=== PATIENT | male | born 1985 | race Caucasian/White ===

== ENCOUNTER 2016-10-13 14:01 | Emergency (ER) | payer SELFPAY ==
--- NOTE | ~2016-10-13 | ER ---
PATIENT'S NAME: CLAIRE PATRICIA [facility] AGE: 31 Y [address] ROOM: [place] [address] LOCATION: ED ADMIT DATE: 10/13/2016 ER/Outpatient Report DISCHARGE DATE: 10/13/2016 FAMILY PHYSICIAN: PHYSICIAN, NO ATTENDING PHYSICIAN: Yusuf Sheehan Time of Arrival: 1411 hours. Time of Evaluation: 1415 hours. CHIEF COMPLAINT: Back pain. HISTORY OF PRESENT ILLNESS: The patient woke up with right mid back pain approximately 5 days ago. It has stayed the same over the past 5 days. He has used ice, heat, Tylenol and ibuprofen without any relief. He denies any trauma to the area. Has not had pain in that area before. Has had pain lower, but not as high up as it is at this time. ALLERGIES: ON HIS CHART AND REVIEWED BY ME. MEDICATIONS: On his chart and reviewed by me. PAST MEDICAL HISTORY: Back problems and acid reflux. PAST SURGERIES: Left ankle pin. SOCIAL HISTORY: He does smoke at least half a pack per day; drinks alcohol on a regular basis and smokes marijuana. REVIEW OF SYSTEMS: All negative other than those mentioned in the HPI. PHYSICAL EXAMINATION: VITAL SIGNS: Weighed 101 kg. Blood pressure was 105/77, pulse of 111, respirations 20, temperature of 97.9, and O2 saturation was 97% on room air. GENERAL: He is awake and alert and oriented x4. SKIN: [place], warm, and dry. RESPIRATIONS: Even and nonlabored. Lung sounds are clear throughout. HEART: Regular rate and rhythm. PATIENT'S NAME: CLAIRE PATRICIA [facility] AGE: 31 Y [address] ROOM: [place] [address] LOCATION: ED ADMIT DATE: 10/13/2016 ER/Outpatient Report DISCHARGE DATE: 10/13/2016 FAMILY PHYSICIAN: PHYSICIAN, NO ATTENDING PHYSICIAN: Yusuf Sheehan EXTREMITIES: The patient was able to ambulate in with a steady, even walk. SKIN: No rash or abnormality of his back is noted. EMERGENCY DEPARTMENT COURSE: Thoracic x-ray was completed, no acute bony abnormalities noted. The patient was given [place] 5/325 x2 tabs p.o. He did get some relief with that. IMPRESSION: Back pain. PLAN: Home, rest, ice or heat. Prescription was written for Flexeril and [place]. Numbers were given for clinics here in [facility]. Did discuss with the patient that if pain continues, he may need to consider physical therapy and would have to get that lined up through primary provider. He is to see somebody in 2 to 3 days if symptoms persist. He verbalized understanding. SOUMYA MORROW APRN FOR MD ELIAN NUNN/erma /[id number] d: 10/13/167 t: 10/17/16 174, OUTPATIENT REPORT
== END 2016-10-13 15:05 | disposition disaster alternative care site (69) ==
LOC: GMED 14:01
DX: M54.9 Dorsalgia, unspecified (principal); F17.210 Nicotine dependence, cigarettes, uncomplicated

== ENCOUNTER 2016-12-10 18:25 | Emergency (ER) | payer SELFPAY ==
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
== END 2016-12-10 19:11 | disposition disaster alternative care site (69) ==
LOC: GACC 18:25
DX: S01.511A Laceration without foreign body of lip, initial encounter (principal); M54.2 Cervicalgia; F17.210 Nicotine dependence, cigarettes, uncomplicated; Z98.890 Other specified postprocedural states; W61.42XA Struck by turkey, initial encounter; Y93.I9 Activity, other involving external motion; Y92.410 Unspecified street and highway as the place of occurrence of the external cause